=== PATIENT | male | born 2000 | race African-American/Black ===

== ENCOUNTER 2022-02-21 21:09 | Emergency (ER) | payer BC ==
[2022-02-21 21:19] VITALS: BP 142/83; PULSE 95; RESP 26; TEMP 98.5; BMI 39.5
[2022-02-21] MEDS ORDERED: ALBUTEROL SO4 0.083% IH SOL 2.5 MG/3 ML VIAL.NEB. NEB ONE ×2 (21:27→21:48)
[2022-02-21] MEDS ORDERED: DEXAMETHASONE SOD PHOSPHATE 20 MG/5 ML VIAL IVPB STA (21:32)
[2022-02-21] MEDS ORDERED: SODIUM CHLORIDE 1,000 ML IV STA (21:34)
[2022-02-21] MEDS ORDERED: FAMOTIDINE 20 MG/50 ML IVPB 20 MG/50 ML MG IVPB ONE ×2 (21:34→21:48)
[2022-02-21] MEDS ORDERED: DEXAMETHASONE SOD PHOSPHATE 10 MG/1 ML VIAL ONE (21:48)
[2022-02-22 00:19] LABS: EOS % 3.2 % (0-4.5); HEMOGLOBIN 15.2 GM/dL (11.7-16.9); MCH 26.2 pg (25.7-33.7); MCHC 32.4 g/dl (32.0-35.9); MEAN PLT VOLUME 9.4 fl (7.5-11.1); MONO % 3.9 % (3.8-10.2); NEUT % 52.9 % (42.8-82.8); PLATELET COUNT 258 10^3/uL (134-434); RDW 13.9 % (11.9-15.9); WHITE BLOOD COUNT 9.3 K/mm3 (4.0-10.0)
[2022-02-22 01:22] LABS: ALBUMIN 4.2 g/dl (3.4-5.0); BLOOD UREA NITROGEN 12.7 mg/dL (7-18)
[2022-02-22 01:25] LABS: CREATININE 1.1 mg/dL (0.55-1.3)
[2022-02-22 01:26] LABS: BILIRUBIN,TOTAL 0.3 mg/dL (0.2-1)
[2022-02-22 01:27] LABS: TOT PROT 7.5 g/dl (6.4-8.2)
== END 2022-02-22 01:10 | disposition left against medical advice (07) ==
LOC: JER 21:09
PROC: 3E033GC Introduction of Other Therapeutic Substance into Peripheral Vein, Percutaneous Approach (ICD-10-PCS; principal; 2022-02-21)
PROC: 3E0F7GC Introduction of Other Therapeutic Substance into Respiratory Tract, Via Natural or Artificial Opening (ICD-10-PCS; 2022-02-21)
DX: R07.89 Other chest pain (principal); R06.02 Shortness of breath
CPT/HCPCS: 36415; 80053; 84484; 85025; 93005; 93010; 99284-25

== ENCOUNTER 2023-10-26 22:05 | Emergency (ER) | payer BC ==
[2023-10-26 22:09] VITALS: BP 138/87; RESP 20; TEMP 98.6; BMI 39.5
[2023-10-26] MEDS ORDERED: KETOROLAC TROMETHAMINE 30 MG/1 ML VIAL ONE (23:21)
[2023-10-26] MEDS ORDERED: AMOX TR/POT CLAV 875MG/125MG TABLETS (FP) ONE (23:21)
[2023-10-26] MEDS: KETOROLAC TROMETHAMINE 30 MG/1 ML VIAL IM ONE (23:27)
[2023-10-26] MEDS: AMOX TR/POT CLAV 875MG/125MG TABLETS (FP) PO ONE (23:27)
[2023-10-26 23:37] VITALS: PULSE 84
== END 2023-10-26 23:58 | disposition home or self-care (01) ==
LOC: JERFT 22:05 → JER 22:05
PROC: 3E0233Z Introduction of Anti-inflammatory into Muscle, Percutaneous Approach (ICD-10-PCS; principal; 2023-10-26)
DX: H66.92 Otitis media, unspecified, left ear (principal)
CPT/HCPCS: 99284-25